=== PATIENT | male | born 1995 ===

== ENCOUNTER 2017-02-03 00:34 | Emergency (ER) | payer SELFPAY ==
[2017-02-03 00:53] VITALS: O2SAT 99
[2017-02-03] MEDS ORDERED: Sodium Chloride 0.9% 1,000 ML IV ONE (01:36)
[2017-02-03 01:52] LABS: BASO % 0.5 % (0.0-2.0); EOS % 0.3 % (0.0-4.0); HEMATOCRIT 41.9 % (35.0-51.0); LYMPH # 0.7 K/uL (1.0-4.3); LYMPH % 9.9 % (20.0-40.0); MEAN CELL VOLUME 93.5 fL (80.0-94.0); MEAN CORPUSCULAR HEMOGLOBIN 31.8 pg (27.0-31.0); MEAN PLATELET VOLUME 8.6 fL (7.2-11.7); MONO # 0.9 K/uL (0.0-0.8); MONO % 12.5 % (0.0-10.0); PLATELET COUNT 201 K/uL (130-400); RED CELL DISTRIBUTION WIDTH 12.7 % (11.5-14.5); WHITE BLOOD COUNT 7.5 K/uL (4.8-10.8)
[2017-02-03 02:00] LABS: CHLORIDE 99 mmol/L (98-107); SODIUM 139 mmol/L (132-148)
[2017-02-03 02:01] LABS: POTASSIUM 3.6 mmol/L (3.6-5.2)
[2017-02-03 02:03] LABS: ALB/GLOB RATIO 1.6 (1.0-2.1); ALKALINE PHOSPHATASE 50 U/L (38-126); ALT/SGPT 40 U/L (21-72); AST/SGOT 32 U/L (17-59); BILIRUBIN,TOTAL 1.4 mg/dL (0.2-1.3); BLOOD UREA NITROGEN 19 mg/dL (9-20); CALCIUM 9.6 mg/dl (8.6-10.4); CARBON DIOXIDE 23 mmol/L (22-30); GFR AFRICAN-AMERICAN > 60; GLUCOSE,RANDOM 106 mg/dL (75-110); TOTAL PROTEIN 7.6 g/dL (6.3-8.3)
[2017-02-03 02:34] LABS: THYROID STIMULATING HORMONE 0.69 mIU/L (0.46-4.68)
[2017-02-03 03:25] VITALS: BP 115/62; PULSE 61; RESP 18; TEMP 98
--- NOTE | 2017-02-03 03:25 | C.PDOC ---
History Of Present Illness 21 year old male, with a history of anxiety disorder, presents to the ED with complaints of sudden onset of anxiety attack including feeling shaky, palpitations, and lightheadedness prior to arrival. Patient states this anxiety attack lasted longer than usual, prompting visit. Time Seen by Provider: 02/03/17 01:02 Chief Complaint (Nursing): Anxiety History Per: Patient History/Exam Limitations: no limitations Onset/Duration Of Symptoms: Hrs, Sudden Onset Current Symptoms Are (Timing): Still Present Suicide/Self Injury Attempted (Context): None Modifying Factor(s): None Associated Symptoms: Anxiety. denies: Suicidal Thoughts, Suicidal Plan Involuntary Hold By: None Recent travel outside of the [place]: No Past Medical History Reviewed: Historical Data, Nursing Documentation, Vital Signs Vital Signs: Last Vital Signs Temp 98.0 F 02/03/17 03:24 Pulse 61 02/03/17 03:24 Resp 18 02/03/17 03:24 BP 115/62 02/03/17 03:24 Pulse Ox 99 02/03/17 06:09 - Medical History PMH: Anxiety Family History: States: Unknown Family Hx - Social History Hx Alcohol Use: No Hx Substance Use: No Review Of Systems Constitutional: Negative for: Fever, Chills Cardiovascular: Positive for: Palpitations, Light Headedness. Negative for: Chest Pain Respiratory: Negative for: Cough, Shortness of Breath Gastrointestinal: Negative for: Nausea, Vomiting, Abdominal Pain Psych: Positive for: Anxiety Physical Exam - Physical Exam Appears: Non-toxic, No Acute Distress, Other (Appears anxious ) Skin: Warm, Dry Head: Atraumatic, Normacephalic Eye(s): bilateral: Normal Inspection, PERRL, EOMI Oral Mucosa: Moist Neck: Normal ROM, Supple Chest: Symmetrical, No Deformity Cardiovascular: Other (Patient is tachycardic at S1 and S2 ) Respiratory: Normal Breath Sounds, No Rales, No Rhonchi, No Wheezing Gastrointestinal/Abdominal: Soft, No Tenderness Extremity: Normal ROM, No Tenderness, Other (No hand tremors ) Neurological/Psych: Oriented x3 Gait: Steady ED Course And Treatment - Laboratory Results Result Diagrams: 02/03/17 01:47 02/03/17 01:47 ECG: Interpreted By Me, Viewed By Me ECG Rhythm: Sinus Rhythm Rate From EC O2 Sat by Pulse Oximetry: 99 (RA) Progress Note: Labs were ordered and patient was given Xanax .25 and fluids. Labs were reviewed and were in normal limits. On re-evaluation patient is feeling better and requesting to go home. Disposition - Disposition Referrals: [facility] [Outside] Disposition: HOME/ ROUTINE Disposition Time: 03:22 Condition: STABLE Additional Instructions: PLEASE FOLLOW UP WITH PMD RETURN TO ER IF WORSE Instructions: Anxiety (ED) Forms: [employer] (Fijian) - Clinical Impression Clinical Impression: Anxiety - PA / CERTIFIED DRUG COUNSELOR / Resident Statement MD/DO has reviewed & agrees with the documentation as recorded. - Scribe Statement The provider has reviewed the documentation as recorded by the Scribe Tracy Elias All medical record entries made by the Scribe were at my direction and personally dictated by me. I have reviewed the chart and agree that the record accurately reflects my personal performance of the history, physical exam, medical decision making, and the department course for this patient. I have also personally directed, reviewed, and agree with the discharge instructions and disposition.
[2017-02-03 03:31] LABS: NEUTROPHIL 79 % (50-75); TOTAL CELLS COUNTED 100
== END 2017-02-03 03:32 | disposition home or self-care (01) ==
LOC: C.ER 00:34
DX: F41.9 Anxiety disorder, unspecified (principal)
CPT/HCPCS: 80053; 84443; 85025; 96360; 99284; J7040